=== PATIENT | male | born 1965 | race African-American/Black ===

== ENCOUNTER 2018-01-13 01:12 | Emergency (ER) | payer SELFPAY ==
[2018-01-13 02:31] LABS: Bilirubin Negative (Negative); Blood, Urine Trace (Negative); Clarity Clear (Clear); Glucose, Urine (Dipstick) Negative (Negative); Leukocyte Negative (Negative); Nitrite Negative (Negative); Protein, Urine (Dipstick) Negative (Neg-Trace); Urobilinogen 0.2 mg/dL (0.2-1.0); pH, Urine 5.5 (5.0-9.0)
[2018-01-13 02:33] LABS: Bacteria/HPF None Seen HPF (None Seen); Specific Gravity, Urine 1.004 (1.002-1.036); WBC/HPF 0-3 HPF (0-3)
== END 2018-01-13 02:44 | disposition home or self-care (01) ==
LOC: MADERS 01:12
DX: T67.5XXA Heat exhaustion, unspecified, initial encounter (principal)
CPT/HCPCS: 81003; 81015; 99284